=== PATIENT | female | born 1985 | race Caucasian/White ===

== ENCOUNTER 2020-04-05 22:20 | Emergency (ER) | payer MEDICAID ==
[~2020-04-05] VITALS: Ht 172.7 cm; Wt 89.0 kg
[2020-04-05] MEDS ORDERED: DOXY-354 PO (22:33)
[2020-04-05] MEDS ORDERED: IBUPROFEN 600 MG TABLET PO ONE (23:00)
[2020-04-05] MEDS ORDERED: ACETAMINOPHEN 500 MG TABLET PO ONE (23:00)
[2020-04-05 23:05] VITALS: BP 145/91
== END 2020-04-05 23:30 | disposition home or self-care (01) ==
LOC: EMS 22:22
DX: L03.115 Cellulitis of right lower limb (principal); M79.89 Other specified soft tissue disorders